=== PATIENT | male | born 1985 | race African-American/Black ===

== ENCOUNTER 2016-12-31 15:20 | Emergency (ER) | payer OTHER ==
[2016-12-31] MEDS ORDERED: IBUPROFEN 800 MG TABLET PO ONE (16:40)
--- NOTE | 2016-12-31 16:44 | ER Document Report ---
ED Medical Screen (RME) - General Stated Complaint: FEVER Time seen by provider: 16:41 Mode of Arrival: Ambulatory Information source: Patient Notes: 31-year-old male complaining of cough and congestion for 2-3 days. Temperature was up to 103 today [facility] sent him over due to pulse of 122 pulse ox was 96% . He did not get a flu shot but they were concerned about pneumonia. I have greeted and performed a rapid initial assessment of this patient. A comprehensive ED assessment, evaluation of the patient, analysis of test results , and completion of the medical decision making process will be conducted by additional ED providers. - Related Data Allergies/Adverse Reactions: acetaminophen [From Percocet] Allergy (Intermediate, Verified 08/29/11 07:13) oxycodone HCl [From Percocet] Allergy (Intermediate, Verified 08/29/11 07:13) Past Medical History Past Surgical History: Reports: Hx Orthopedic Surgery - Immunizations Hx Diphtheria, Pertussis, Tetanus Vaccination: Yes Physical Exam - Vital signs Vitals: Temp Pulse Resp BP Pulse Ox 102.2 F H 124 H 20 130/68 H 95 12/31/16 16:02 12/31/16 16:02 12/31/16 16:02 12/31/16 16:02 12/31/16 16:02 Course - Vital Signs Vital signs: Temp Pulse Resp BP Pulse Ox 102.2 F H 124 H 20 130/68 H 95 12/31/16 16:02 12/31/16 16:02 12/31/16 16:02 12/31/16 16:02 12/31/16 16:02
[2016-12-31] MEDS ORDERED: ALBUTEROL SULFATE 0.083% NEB 2.5 MG/3 ML AMPUL NEB ONE (16:45)
--- NOTE | 2016-12-31 20:16 | ER Document Report ---
ED General - General Chief Complaint: Fever Stated Complaint: FEVER Time seen by provider: 20:12 Mode of Arrival: Ambulatory Information source: Patient Notes: 31-year-old male with 2 day history of fever to 102, chills, nausea, cough productive of white sputum, posttussive emesis, sharp bilateral lower chest pain with coughing or deep breathing. Physical Exam: General: Alert, appears well. HEENT: Normocephalic. Atraumatic. PERRLA. Extraocular movements intact. Oropharynx clear. Neck: Supple. Non-tender. Respiratory: No respiratory distress. He rhonchi bilateral breath sounds equal no accessory muscle use Cardiovascular: The cardiac and regular no murmur Abdominal: Normal Inspection. Soft, non-tender. No distension. Normal Bowel Sounds. Back: Non-tender. No deformity or step off. Extremities: Moves all four extremities. Upper extremities: Normal inspection. Non-tender. Normal color. Normal ROM. Normal temperature. Lower extremities: Normal inspection. Non-tender. No edema. Normal color. Normal ROM. Normal temperature. Neurological: Speech clear mentation normal as all extremities well Psychological: Normal affect. Normal Mood. Skin: Warm. Dry. Normal color. TRAVEL OUTSIDE OF THE [place] IN LAST 30 DAYS: No - Related Data Allergies/Adverse Reactions: acetaminophen [From Percocet] Allergy (Intermediate, Verified 12/31/16 16:44) oxycodone HCl [From Percocet] Allergy (Intermediate, Verified 12/31/16 16:44) Past Medical History - General Information source: Patient - Social History Smoking Status: Current Every Day Smoker Chew tobacco use (# tins/day): No Frequency of alcohol use: Rare Drug Abuse: None Family History: Reviewed & Not Pertinent Patient has suicidal ideation: No Patient has homicidal ideation: No - Past Medical History Cardiac Medical History: Reports: None Pulmonary Medical History: Reports: None Renal/ Medical History: Denies: Hx Peritoneal Dialysis Past Surgical History: Reports: Hx Orthopedic Surgery - Immunizations Hx Diphtheria, Pertussis, Tetanus Vaccination: Yes Review of Systems - Review of Systems Constitutional: See HPI EENT: denies: Ear pain, Throat pain Cardiovascular: See HPI Respiratory: See HPI Gastrointestinal: See HPI Genitourinary: denies: Burning, Dysuria Musculoskeletal: denies: Back pain Skin: denies: Rash Hematologic/Lymphatic: denies: Swollen glands Neurological/Psychological: denies: Weakness, Numbness Physical Exam - Vital signs Vitals: Temp Pulse Resp BP Pulse Ox 102.2 F H 124 H 20 130/68 H 95 12/31/16 16:02 12/31/16 16:02 12/31/16 16:02 12/31/16 16:02 12/31/16 16:02 Course - Re-evaluation Re-evalutation: 12/31/16 20:14 Patient presentation and x-rays consistent with renal required pneumonia. He' ll be prescribed albuterol inhaler and Zithromax Z-Shan and have him follow-up with the [facility] next week for recheck. - Vital Signs Vital signs: Temp Pulse Resp BP Pulse Ox 102.2 F H 124 H 20 130/68 H 95 12/31/16 16:02 12/31/16 16:02 12/31/16 16:02 12/31/16 16:02 12/31/16 16:02 - Diagnostic Test Radiology reviewed: Image reviewed, Reports reviewed Discharge - Discharge Clinical Impression: Pneumonia Qualifiers: Pneumonia type: due to unspecified organism Laterality: left Lung location: lower lobe of lung Qualified Code(s): J18.1 - Lobar pneumonia, unspecified organism Condition: Stable Disposition: HOME, SELF-CARE Additional Instructions: Pneumonia Your examination indicates that you have pneumonia. This is an infection of the lung tissue, usually caused by bacteria or a virus. Symptoms include cough, fever, shaking chills, chest pain, shortness of breath, and coughing up bloody sputum. Treatment for bacterial pneumonia includes rest, antibiotics for 10 to 14 days, increasing your clear liquid intake, a cool mist humidifier at your bedside, and fever medication. Often, a repeat chest X-ray is performed in a few weeks--even if you feel better--to ascertain whether the infection has completely resolved and no underlying lung problem is present. You should call the physician if you develop persistent vomiting, high fever that does not respond to fever medication, increasing shortness of breath , confusion, or lethargy. Also, failure to improve within two to three days is an indication for re-examination. Prescriptions: Albuterol Sulfate [Proair HFA Inhalation Aerosol 8.5 gm MDI] 2 puff IH Q4H PRN # 1 mdi PRN Reason: Azithromycin [Zithromax 250 mg Tablet] 250 mg PO ASDIR PRN #6 tablet PRN Reason: Referrals: [facility] [Provider Group] - Follow up in 1 week
[2016-12-31 20:43] VITALS: BP 98/68
== END 2016-12-31 20:50 | disposition home or self-care (01) ==
LOC: ER 15:20
DX: J18.1 Lobar pneumonia, unspecified organism (principal); R50.9 Fever, unspecified; R11.0 Nausea; R05 Cough; R07.9 Chest pain, unspecified; Z88.5 Allergy status to narcotic agent; F17.200 Nicotine dependence, unspecified, uncomplicated
CPT/HCPCS: 71020; 87804; 94640; 99283